=== PATIENT | female | born 1985 | race African-American/Black ===

== ENCOUNTER 2020-04-01 13:22 | Emergency (ER) | payer SELFPAY ==
[~2020-04-01] VITALS: Ht 157.5 cm; Wt 81.0 kg
[2020-04-01] MEDS ORDERED: ONDANSETRON HCL 4MG/2ML INJ IV STA (16:04)
[2020-04-01] MEDS ORDERED: SODIUM CHLORIDE 0.9% 1,000 ML IV ONE (16:04)
[2020-04-01] MEDS ORDERED: MORPHINE SULFATE 4 MG/ML CPJ (NOT FOR IM USE) IV STA (16:04)
[2020-04-01 16:41] LABS: CHLORIDE 109 mEq/L (98-107)
[2020-04-01 16:42] LABS: EOSINOPHILS % 1.7 % (0.0-5.0); HEMATOCRIT. 40.7 % (36.0-48.0); HEMOGLOBIN. 13.6 g/dL (12.0-16.0); LYMPHOCYTES % 43.4 % (20.0-50.0); MEAN CORPUSCULAR HEMOGLOBIN 27.1 pg (28.0-32.0); MEAN CORPUSCULAR VOLUME 81.1 fL (81.0-99.0); MEAN PLATELET VOLUME 8.8 fl (7.4-10.4); MONOCYTES % 5.4 % (2.0-8.0); NEUTROPHILS % 48.5 % (40.0-76.0); PLATELET 203 x1000/uL (130-400); RED BLOOD CELL COUNT 5.03 mill/uL (4.2-5.4); RED CELL DISTRIBUTION WIDTH 16.3 % (11.6-14.6)
[2020-04-01 16:50] LABS: INR 1.1; PROTHROMBIN TIME 11.5 sec (9.6-11.0)
[2020-04-01 16:51] LABS: HCG SCREEN NEGATIVE
[2020-04-01] MEDS ORDERED: HYDROCODONE/ACETAMINOPHEN 5/325MG TABLET PO ONE (18:00)
[2020-04-01 18:03] LABS: CLARITY URINE CLEAR (CLEAR); COLOR URINE YELLOW (YELLOW); KETONES URINE NEGATIVE (NEGATIVE); LEUKOCYTE ESTERASE URINE 1+ (NEGATIVE); NITRITE URINE NEGATIVE (NEGATIVE); OCCULT BLOOD URINE NEGATIVE (NEGATIVE); PROTEIN URINE NEGATIVE (NEGATIVE); SPECIFIC GRAVITY URINE 1.018 (1.005-1.030); UROBILINOGEN URINE 0.2 E.U./dL (0.2-1.0)
[2020-04-01 18:06] VITALS: BP 142/97
[2020-04-01] MEDS ORDERED: IOHEXOL-300 100 ML BOTTLE ONE (23:14)
== END 2020-04-01 18:20 | disposition home or self-care (01) ==
LOC: ER 13:22
DX: K43.9 Ventral hernia without obstruction or gangrene (principal); F17.200 Nicotine dependence, unspecified, uncomplicated; Z98.890 Other specified postprocedural states
CPT/HCPCS: 36415; 74177; 80053; 81003; 83690; 84703; 85025; 85610; 99285; J2270; J2405; J7030; Q9967